=== PATIENT | male | born 1980 | race Caucasian/White ===

== ENCOUNTER 2018-12-12 08:48 | Day surgery (SDC) | payer BC ==
[~2018-12-12] VITALS: Ht 170.2 cm; Wt 68.3 kg
[~2018-12-12 08:48] MED LIST: AZIT250 PO; Desyrel50 MG PO; HYDACE5 PO; Norco 10-325 T1 EACH PO
--- NOTE | 2018-12-12 13:49 | NUR ---
12/12/18 1349 Reyna Machado PT WAS READY TO GO AND JUST WAITING ON GF TO PICK HIM UP AT 1200
== END 2018-12-12 12:30 | disposition home or self-care (01) ==
LOC: ORSCSDS 08:48
PROVIDERS: Surgery
PROC: 06BY0ZC Excision of Hemorrhoidal Plexus, Open Approach (ICD-10-PCS; principal; 2018-12-12 10:00)
DX: K64.2 Third degree hemorrhoids (principal); K62.5 Hemorrhage of anus and rectum; J45.909 Unspecified asthma, uncomplicated; Z87.891 Personal history of nicotine dependence
CPT/HCPCS: 88304; J1100; J1885; J2250; J2405; J2704; J3010; J7120

== ENCOUNTER → 2019-01-07 | Outpatient (CLI) | payer BC | END | disposition home or self-care (01) | LOC: LAB 13:26 → LAB SHORT 13:26 | DX: K61.1 Rectal abscess (principal) | CPT/HCPCS: 87070; 87075; 87077; 87186; 87205 ==